=== PATIENT | female | born 1985 | race Caucasian/White ===

== ENCOUNTER 2020-11-17 09:48 | Emergency (ER) | payer OTHER ==
[2020-11-17] MEDS ORDERED: HYDROCODON-ACE1 EAC4 PO (10:27)
== END 2020-11-17 11:45 | disposition home or self-care (01) ==
LOC: ER1 09:48
DX: M54.2 Cervicalgia (principal); M25.512 Pain in left shoulder; F17.210 Nicotine dependence, cigarettes, uncomplicated; I10 Essential (primary) hypertension; K21.9 Gastro-esophageal reflux disease without esophagitis; Z90.710 Acquired absence of both cervix and uterus; Z90.49 Acquired absence of other specified parts of digestive tract
CPT/HCPCS: 96372; 99283; J1100; J1885

== ENCOUNTER 2020-11-23 19:28 | Inpatient (IN) | payer OTHER ==
[~2020-11-23] VITALS: Ht 170.2 cm; Wt 108.4 kg
[~2020-11-23 19:28] MED LIST: HYDROCODON-ACE1 EAC4 PO
[2020-11-23] MEDS ORDERED: CIMETIDINE200 MG PO (23:46)
[2020-11-23] MEDS ORDERED: PROTONIX 40 MG40 M1 PO (23:46)
[2020-11-23] MEDS ORDERED: LISINOPRIL10 MG PO (23:46)
[2020-11-23] MEDS ORDERED: GABAPENTIN600 MG PO (23:46)
[2020-11-24 08:35] LABS: BUN/CREATININE RATIO 14 (0-10)
[2020-11-24] MEDS ORDERED: IBUPROFEN800 MG PO (09:32)
[2020-11-24] MEDS ORDERED: PHENERGAN 12.12.5 M1 PO (09:33)
[2020-11-24] MEDS ORDERED: PHENTERMINE H37.5 M1 PO (09:34)
[2020-11-24] MEDS ORDERED: VITAMIN D21250 MCG PO (09:35)
[2020-11-24 10:45] LABS: HEMOGLOBIN 13.5 gm/dl (12.3-15.3); RED BLOOD COUNT 4.13 M/UL (4.00-5.10); WHITE BLOOD COUNT 13.4 K/UL (4.5-11.0)
[2020-11-25 04:10] LABS: CAMPYLOBACTER Not Detected (Negative); CLOSTRIDIUM DIFFICILE TOX A/B Not Detected (Negative); ENTEROAGGREGATIVE E.COLI (EAEC Not Detected (Negative); ENTEROPATHOGENIC E.COLI (EPEC) Not Detected (Negative); ENTEROTOXIGENIC E.COLI (ETEC) Not Detected (Negative); PLESIOMONAS SHIGELLOIDES Not Detected (Negative); SALMONELLA Not Detected (Negative); SHIGA-LIK TOX.PRO.E.COLI (STEC Not Detected (Negative); VIBRIO Not Detected (Negative); VIBRIO CHOLERAE Not Detected (Negative); YERSINIA ENTEROCOLITICA Not Detected (Negative)
[2020-11-25 04:11] LABS: ADENOVIRUS F 40/41 Not Detected (Negative); ASTROVIRUS Not Detected (Negative); CRYPTOSPORIDIUM Not Detected (Negative); E.COLI 0157 Not Detected (Negative); ENTAMOEBA HISTOLYTICA Not Detected (Negative); GIARDIA LAMBLIA Not Detected (Negative); NOROVIRUS GI/GII Not Detected (Negative); ROTOVIRUS A Not Detected (Negative); SAPOVIRUS Not Detected (Negative); SHIG/ENTEROINVAS.ECOLI (EIEC) Not Detected (Negative)
[2020-11-25 04:13] LABS: HEMOGLOBIN 12.9 gm/dl (12.3-15.3); RED BLOOD COUNT 3.96 M/UL (4.00-5.10)
[2020-11-25 04:17] LABS: WHITE BLOOD COUNT 6.9 K/UL (4.5-11.0)
[2020-11-25 04:41] LABS: BUN/CREATININE RATIO 10 (0-10)
[2020-11-26 03:51] LABS: HEMOGLOBIN 12.8 gm/dl (12.3-15.3); RED BLOOD COUNT 3.97 M/UL (4.00-5.10); WHITE BLOOD COUNT 5.5 K/UL (4.5-11.0)
[2020-11-26 04:28] LABS: BUN/CREATININE RATIO 7 (0-10)
[2020-11-27 04:49] LABS: HEMOGLOBIN 12.8 gm/dl (12.3-15.3); RED BLOOD COUNT 3.88 M/UL (4.00-5.10); WHITE BLOOD COUNT 5.5 K/UL (4.5-11.0)
[2020-11-27 05:10] LABS: BUN/CREATININE RATIO 7 (0-10)
[2020-11-28 14:31] LABS: HEMOGLOBIN 12.4 gm/dl (12.3-15.3); RED BLOOD COUNT 3.89 M/UL (4.00-5.10); WHITE BLOOD COUNT 4.8 K/UL (4.5-11.0)
[2020-11-28 14:51] LABS: BUN/CREATININE RATIO 6 (0-10)
[2020-11-29 05:27] LABS: HEMOGLOBIN 12.8 gm/dl (12.3-15.3); RED BLOOD COUNT 3.87 M/UL (4.00-5.10); WHITE BLOOD COUNT 4.4 K/UL (4.5-11.0)
[2020-11-29 05:52] LABS: BUN/CREATININE RATIO 5 (0-10)
[2020-11-30 04:25] LABS: RED BLOOD COUNT 4.02 M/UL (4.00-5.10)
[2020-11-30 04:28] LABS: WHITE BLOOD COUNT 6.7 K/UL (4.5-11.0)
[2020-11-30 04:41] LABS: BUN/CREATININE RATIO 5 (0-10)
[2020-11-30] MEDS ORDERED: BENTYL 10MG CAP10 MG PO (10:19)
== END 2020-11-30 13:34 | disposition left against medical advice (07) | DRG 872 ==
LOC: MED SURG 4 19:28
PROVIDERS: Internal Medicine; Internal Medicine Gastroenterology; ADMIT Internal Medicine
PROC: 0DB38ZX Excision of Lower Esophagus, Via Natural or Artificial Opening Endoscopic, Diagnostic (ICD-10-PCS; principal; 2020-11-28 09:45)
DX: A41.9 Sepsis, unspecified organism (principal); A09 Infectious gastroenteritis and colitis, unspecified; K21.9 Gastro-esophageal reflux disease without esophagitis; I10 Essential (primary) hypertension; F17.200 Nicotine dependence, unspecified, uncomplicated; K76.0 Fatty (change of) liver, not elsewhere classified; K44.9 Diaphragmatic hernia without obstruction or gangrene; E86.0 Dehydration; E87.6 Hypokalemia; E66.9 Obesity, unspecified; I34.1 Nonrheumatic mitral (valve) prolapse; Z20.822 Contact with and (suspected) exposure to COVID-19; J44.9 Chronic obstructive pulmonary disease, unspecified; Z79.899 Other long term (current) drug therapy; Z90.49 Acquired absence of other specified parts of digestive tract; Z90.710 Acquired absence of both cervix and uterus; Z98.890 Other specified postprocedural states; Z83.3 Family history of diabetes mellitus; Z68.37 Body mass index [BMI] 37.0-37.9, adult
CPT/HCPCS: 36415; 71046; 80048; 80076; 82550; 82553; 83036; 83605; 84132; 84484; 85027; 87507; 96374; 96375; 96376; C9113; G0378; G0379; J1170; J2250; J2270; J2405; J2543; J2704; J3010; J7040; Q9967; U0002

== ENCOUNTER → 2020-12-08 | Outpatient (CLI) | payer OTHER ==
[~2020-12-08] MED LIST changes: +BENTYL 10MG CAP10 MG PO; +CIMETIDINE200 MG PO; +GABAPENTIN600 MG PO; +IBUPROFEN800 MG PO; +LISINOPRIL10 MG PO; +PHENERGAN 12.12.5 M1 PO; +PHENTERMINE H37.5 M1 PO; +PROTONIX 40 MG40 M1 PO; +VITAMIN D21250 MCG PO
== END ==
LOC: KOH-I 12-06 08:00
DX: S73.102A Unspecified sprain of left hip, initial encounter (principal); X58.XXXA Exposure to other specified factors, initial encounter
CPT/HCPCS: 73721